=== PATIENT | female | born 1975 | race African-American/Black ===

== ENCOUNTER 2018-11-10 15:44 | Inpatient (IN) | payer OTHER ==
[~2018-11-10] VITALS: Ht 152.4 cm; Wt 34.0 kg
[2018-11-10 15:46] VITALS: BP 136/76
--- NOTE | 2018-11-10 15:53 | NUR ---
PT WHEELED OUT O LOBBY AT THIS TIME, VSS.
--- NOTE | 2018-11-10 16:34 | NUR ---
WHEELCHAIRED INTO ROOM 7
--- NOTE | 2018-11-10 16:45 | NUR ---
BIB MOM WITH C/O LOSS OF APPETITE AND ABD DISTENTION X1 WEEK. PER MOM, PT HAS BEEN HAVING VERY FREQUENT AND SMALL RUNNY BOWEL MOVEMENTS OVER THE LAST WEEK, AND SHE HAS BEEN REFUSING TO EAT. PT BOWEL SOUNDS PRESENT X4, ABDOMEN IS HARD/ROUND/DISTENDED/FIRM. 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 PT MOM DENIES N/V/FEVER.
[2018-11-10 16:57] LABS: BASOPHILS % (AUTO) 0.2 % (0.0-2.0); EOSINOPHILS % (AUTO) 0.5 % (0.0-4.0); HEMATOCRIT 37.5 % (36-48); HEMOGLOBIN 12.5 g/dL (12.0-16.0); LYMPHOCYTES # (AUTO) 0.5 K/uL (2.5-16.5); LYMPHOCYTES % (AUTO) 15.8 % (20.5-51.1); MEAN CORPUSCULAR HEMOGLOBIN 32 pg (27-31); MEAN CORPUSCULAR HGB CONC 33 g/dL (33-37); MEAN CORPUSCULAR VOLUME 95.2 fL (80-94); MONOCYTES # (AUTO) 0.4 K/uL (0.8-1.0); MONOCYTES % (AUTO) 11.7 % (1.7-9.3); NEUTROPHILS # (AUTO) 2.2 K/uL (1.8-7.7); NEUTROPHILS % (AUTO) 71.8 % (42.2-75.2); PLATELET COUNT (AUTO) 241 K/uL (140-450); RED BLOOD CELL COUNT(AUTO) 3.94 MIL/uL (4.20-5.40); RED CELL DISTRIBUTION WIDTH 12.8 % (11.6-13.7); WHITE BLOOD COUNT (AUTO) 3.1 K/uL (4.8-10.8)
[2018-11-10 17:07] LABS: ANION GAP 10.4 (8-16); CARBON DIOXIDE 33.3 mmol/L (21-32); CREATININE 0.5 mg/dL (0.6-1.3); POTASSIUM 3.7 mmol/L (3.5-5.1)
[2018-11-10 17:12] LABS: ALBUMIN 4.3 g/dL (3.4-5.0); TOTAL BILIRUBIN 0.9 mg/dL (0.0-1.0)
--- NOTE | 2018-11-10 17:45 | NUR ---
# 14 FR Urinary catheter inserted utilizing sterile technique. Immediate return of YELLOW 100ml urine noted. Urine sample collected and sent to lab. Pt tolerated procedure WELL.
--- NOTE | 2018-11-10 18:08 | NUR ---
PT LEFT TO CT
--- NOTE | 2018-11-10 18:18 | NUR ---
PT RETURNED FROM CT VIA [facility].
--- NOTE | 2018-11-10 18:18 | NUR ---
PT RETURNED FROM CT
--- NOTE | 2018-11-10 18:56 | NUR ---
PT RESTING IN BED, MOM AT BEDSIDE
--- NOTE | 2018-11-10 19:11 | NUR ---
RECEIVED REPORT FROM KP MARTINEZ. PT LAYING IN BED. MOTHER AT BEDSIDE.
--- NOTE | 2018-11-10 20:06 | NUR ---
PER MD ORDER PT NPO
[2018-11-10] MEDS ORDERED: NACL 0.9% 1,000 ML IV ONE (20:30)
--- NOTE | 2018-11-10 20:46 | NUR ---
ESTABLISHED IV LEFT FOREARM 20G. TOLERATED WELL.
[2018-11-10] MEDS ORDERED: MORPHINE SULFATE 4 MG/ML SYR IVP PRN (20:50)
[2018-11-10] MEDS ORDERED: ONDANSETRON 4 MG/2 ML VIAL IVP PRN (20:50)
[2018-11-10] MEDS ORDERED: ALBUTEROL 0.083% 2.5 MG/3 ML NEBU INH PRN (20:50)
[2018-11-10] MEDS ORDERED: LORazepam 2 MG/ML VIAL IVP PRN (20:50)
[2018-11-10 20:52] VITALS: BP 129/88
--- NOTE | 2018-11-10 20:52 | NUR ---
RECEIVED BEDSIDE REPORT FROM INTERNET SALES ASSOCIATE, PATIENT AWAKE, MOTHER AT BEDSIDE. HX OF CEREBRAL PALSY. ABLE TO MOUTH SOME WORDS IN A SOFT VOICE, ABLE TO FOLLOW SOME COMMANDS. PERRLA SIZE 3 BILATERALLY, V/S TAKEN ALL STABLE. PATIENT FLACC-6 WILL MEDICATE WITH MORPHINE. LUNG SOUNDS CLEAR, S1 AND S2 HEARD, CAP REFILL LESS THAN 2 SECONDS, PULSES PALPATED ILL ALL EXTREMITIES. ABDOMEN IS DISTENDED, HYPOACTIVE BOWEL SOUNDS IN ALL QUADRANTS. BLE CONTRACTURES NOTED. SKIN IS WARM AND DRY NO WOUNDS NOTED. IV IN LEFT FA 20 G INFUSING 1 L NS BOLUS. WC AT BEDSIDE. BED ALARM ON. MRSA SCREEN COLLECTED AND SENT TO LAB. MOTHER WHICH IS PATIENT CONSERVATOR AT BEDSIDE AND ABLE TO ANSWER ADMISSION QUESTIONS.
--- NOTE | 2018-11-10 21:25 | NUR ---
Patient will be admitted to care of [facility]. Admited to [facility]. Will go to room 108B. Belongings list completed. Report to DAVID MARTINEZ.
--- NOTE | 2018-11-10 21:25 | NUR ---
WHEELCHAIR KEPT WITH PT. BELONGINGS LIST COMPLETED. MOTHER AT BEDSIDE [facility] FLOOR [facility] 108B. INFORMED SUMMER RN OF NS BOLUS STILL INFUSING AT THIS TIME.
--- NOTE | 2018-11-10 22:30 | NUR ---
GAVE MORPHINE FOR PAIN FLACC-6
[2018-11-10] MEDS: MORPHINE SULFATE 2 MG/ML SYR IVP PRN (22:31)
[2018-11-10] MEDS: METOCLOPRAMIDE 10 MG/2 ML INJ VIAL IVP SCH (22:31)
[2018-11-10] MEDS: LACTATED RINGERS 1,000 ML IV SCH (22:32)
--- NOTE | 2018-11-11 00:10 | NUR ---
PATIENT ASLEEP IN BED ON RA, NO SIGNS OF PAIN AT THIS TIME
--- NOTE | 2018-11-11 01:45 | NUR ---
PATIENT ASLEEP IN BED, NO SIGNS OF DISTRESS OR PAIN AT THIS TIME
--- NOTE | 2018-11-11 04:10 | NUR ---
REPOSITIONED PATIENT FOR COMFORT, NO BM NOTED. PATIENT URINATED X 1. CECILIA CARE PROVIDED. WILL CONTINUE TO MONITOR.
[2018-11-11] MEDS: MORPHINE SULFATE 2 MG/ML SYR IVP PRN (05:14)
[2018-11-11] MEDS: METOCLOPRAMIDE 10 MG/2 ML INJ VIAL IVP SCH ×3 (05:14→21:28)
--- NOTE | 2018-11-11 06:21 | NUR ---
PATIENT SLEEPING IN BED, NO SIGNS OF PAIN, WILL CONTINUE TO MONITOR
--- NOTE | 2018-11-11 07:10 | NUR ---
RECEIVED REPORT FROM SYSTEM ENGINEER NURSE. PT IS ON ROOM AIR, LAYING IN BED. PT IS FULL CODE, NKA. CONTRACTURES TO LOWER EXTREMITIES PRESENT. IV TO LEFT FA. PATIENT IS A&O X2/3. PATIENTS MOTHER IS THE CONSERVATOR. WILL CONTINUE CARE FOR THE DAY
[2018-11-11 07:20] LABS: BASOPHILS % (AUTO) 0.2 % (0.0-2.0); EOSINOPHILS % (AUTO) 0.4 % (0.0-4.0); HEMATOCRIT 34.5 % (36-48); HEMOGLOBIN 11.7 g/dL (12.0-16.0); LYMPHOCYTES # (AUTO) 0.4 K/uL (2.5-16.5); LYMPHOCYTES % (AUTO) 7.6 % (20.5-51.1); MEAN CORPUSCULAR HEMOGLOBIN 32 pg (27-31); MEAN CORPUSCULAR HGB CONC 34 g/dL (33-37); MEAN CORPUSCULAR VOLUME 95.2 fL (80-94); MONOCYTES # (AUTO) 0.4 K/uL (0.8-1.0); NEUTROPHILS # (AUTO) 4.1 K/uL (1.8-7.7); NEUTROPHILS % (AUTO) 83.8 % (42.2-75.2); PLATELET COUNT (AUTO) 206 K/uL (140-450); RED BLOOD CELL COUNT(AUTO) 3.62 MIL/uL (4.20-5.40); RED CELL DISTRIBUTION WIDTH 12.8 % (11.6-13.7); WHITE BLOOD COUNT (AUTO) 4.9 K/uL (4.8-10.8)
[2018-11-11 07:33] LABS: ALBUMIN 3.3 g/dL (3.4-5.0); CARBON DIOXIDE 24.7 mmol/L (21-32); CREATININE 0.3 mg/dL (0.6-1.3); MAGNESIUM 1.8 mg/dL (1.8-2.4); POTASSIUM 3.7 mmol/L (3.5-5.1)
[2018-11-11 08:00] VITALS: BP 101/63
--- NOTE | 2018-11-11 08:30 | NUR ---
PATIENT HAS BEEN SCREENED AND CATEGORIZED HIGH NUTRITION RISK. PATIENT WILL BE SEEN WITHIN 1-2 DAYS OF ADMISSION. 11/11/18-11/12/[address]
[2018-11-11] MEDS: LACTATED RINGERS 1,000 ML IV SCH ×2 (08:55→21:32)
[2018-11-11] MEDS ORDERED: ENOXAPARIN 30 MG/0.3 ML SYR SUBQ SCH (09:00)
--- NOTE | 2018-11-11 09:45 | NUR ---
ADMINISTERED MORNING MEDICATION TO PATIENT. PATIENT TOLERATED WELL.
--- NOTE | 2018-11-11 11:10 | NUR ---
CONTACTED PATIENT'S PCP DR. Karen WHALEY AT [phone] REGARDING POST DISCHARGE APPOINTMENT. SCHEDULED ON 12/17/2018 0900. ADDRESS TO THE CLINIC IS [address] [place] [id number]. COPY OF APPOINTMENT PROVIDED TO THE PATIENT.
--- NOTE | 2018-11-11 12:00 | NUR ---
PATIENT IS IN BED SLEEPING. VISIBLE CHEST RISE AND FALL. NO SIGNS OF RESPIRATORY DISTRESS. WILL CONTINUE TO MONITOR
--- NOTE | 2018-11-11 14:21 | NUR ---
WITH ASSISTANCE, PATIENT USED BED CORBIN AND HAD A BM X1 AND VOID X1. MOTHER IS AT BEDSIDE AND WAS INFORMED ON PLAN OF CARE.
[2018-11-11 16:00] VITALS: BP 114/83
[2018-11-11] MEDS ORDERED: KCL 20 MEQ/WATER INJ PREMIX 100 ML IV SCH (18:15)
--- NOTE | 2018-11-11 19:20 | NUR ---
RECD. RESTING IN BED, AWAKE, A/OX2. RESPIRATION EVEN AND UNLABORED. K RIDER INFUSING AT 25 ML/HR, LEFT AC G20. ABDOMEN DISTENDED, FIRM. INCONTINENT. SAFETY MEASURES ENFORCED. BED ON ALARM. PLAN OF CARE DISCUSSED WITH PATIENT. NEEDS REINFORCEMENT. DENIES PAIN 0/10.
--- NOTE | 2018-11-11 22:00 | NUR ---
WATCHING CARTOONS. MOTHER AT THE BEDSIDE.
[2018-11-12] VITALS: BP 106/70
--- NOTE | 2018-11-12 00:20 | NUR ---
NGT INSERTED BY MICHELLE SUMNER AT THE RIGHT NARES.
--- NOTE | 2018-11-12 00:40 | NUR ---
HAD SOME LOOSE BM, DARK GREENISH COLOR. CLEANSED AND REPOSITIONED IN BED WITH PILLOWS FOR COMFORT.
--- NOTE | 2018-11-12 01:30 | NUR ---
CHEST X-RAY AND KUB DONE BY TECH.
--- NOTE | 2018-11-12 03:00 | NUR ---
NGT IN GOOD POSITION PER CHEST X-RAY. MODERATE AMOUNT OF GAS AND STOOL IN THE COLON.
--- NOTE | 2018-11-12 03:30 | NUR ---
NGT CONNECTED TO LOW INTERMITTENT SUCTION. SMALL AMOUNT OF CLEAR LIQUID NOTED DRAIN FROM NGT.
[2018-11-12] MEDS: METOCLOPRAMIDE 10 MG/2 ML INJ VIAL IVP SCH ×3 (06:02→22:34)
--- NOTE | 2018-11-12 06:30 | NUR ---
TAKEN TO RADIOLOGY VIA BED BY YOLANDA FOR CT OF ABDOMEN WITH CONTRAST.
--- NOTE | 2018-11-12 07:00 | NUR ---
RESTING IN BED FROM RADIOLOGY. NO DISTRESS NOTED.
--- NOTE | 2018-11-12 07:25 | NUR ---
ENDORSED TO AM SHIFT NURSE FOR CONTINUITY OF CARE.
--- NOTE | 2018-11-12 07:26 | NUR ---
RECEIVED BEDSIDE REPORT FROM ARTIFICIAL GLASS EYE MAKER NURSE. PATIENT IS AWAKE, ALERT AND ORIENTEDX2. NO SIGNS OF DISTRESS ON RA. SKIN IS INTACT, LOW CANDIDO. FALL RISK PROTOCOL IN PLACE, PATIENT IS BEDBOUND/WHEELCHAIR BOUND. INCONTINENT. IC ON L AC 20G INFUSING LR AT 80. CLEAN, DRY AND INTACT. NGT ON R NARES CONNECTED TO SUCTION. BED IN LOW POSITION. CALL LIGHT WITHIN REACH. WILL CONTINUE TO MONITOR THE PATIENT
[2018-11-12 08:00] VITALS: BP 105/68
[2018-11-12 08:52] LABS: BASOPHILS % (AUTO) 0.2 % (0.0-2.0); EOSINOPHILS % (AUTO) 0.5 % (0.0-4.0); HEMATOCRIT 34.9 % (36-48); HEMOGLOBIN 11.9 g/dL (12.0-16.0); LYMPHOCYTES # (AUTO) 0.6 K/uL (2.5-16.5); LYMPHOCYTES % (AUTO) 14.8 % (20.5-51.1); MEAN CORPUSCULAR HEMOGLOBIN 32 pg (27-31); MEAN CORPUSCULAR HGB CONC 34 g/dL (33-37); MEAN CORPUSCULAR VOLUME 94.6 fL (80-94); MONOCYTES # (AUTO) 0.4 K/uL (0.8-1.0); MONOCYTES % (AUTO) 11.1 % (1.7-9.3); NEUTROPHILS # (AUTO) 2.8 K/uL (1.8-7.7); NEUTROPHILS % (AUTO) 73.4 % (42.2-75.2); PLATELET COUNT (AUTO) 215 K/uL (140-450); RED BLOOD CELL COUNT(AUTO) 3.69 MIL/uL (4.20-5.40); RED CELL DISTRIBUTION WIDTH 12.5 % (11.6-13.7); WHITE BLOOD COUNT (AUTO) 3.8 K/uL (4.8-10.8)
--- NOTE | 2018-11-12 09:00 | NUR ---
CALLED PATIENTS MOTHER, PHONE WENT TO VOIC[employer], LEFT A MESSAGE AND TOLD HER THEY WERE GOING TO DO IMAGING. I WANTED TO SEE IF PATIENT FAMILY WANTED TO BE THERE AT THAT TIME.
[2018-11-12 09:28] LABS: ANION GAP 14.6 (8-16); CARBON DIOXIDE 23.2 mmol/L (21-32); POTASSIUM 3.8 mmol/L (3.5-5.1)
[2018-11-12 10:14] LABS: CREATININE 0.4 mg/dL (0.6-1.3)
[2018-11-12 10:17] LABS: MAGNESIUM 1.8 mg/dL (1.8-2.4); PHOSPHORUS 2.7 mg/dL (2.5-4.9)
--- NOTE | 2018-11-12 10:35 | NUR ---
CALLED PATIENTS MOTHER AGAIN, PHONE WENT STRAIGHT TO [employer]ICEM[employer] AGAIN, LEFT A MESSAGE
--- NOTE | 2018-11-12 10:40 | NUR ---
PATIENTS FAMILY HAS NOT CALLED, RADIOLOGIST SAID HE WILL JUST DO THE IMAGING
--- NOTE | 2018-11-12 10:41 | NUR ---
XRAY PATIENT PICKED UP THE PATIENT. PATIENT LEFT IN STABLE CONDITION
[2018-11-12] MEDS: DEXT 5% /NACL 0.9% 1,000 ML IV SCH (12:34)
--- NOTE | 2018-11-12 12:34 | NUR ---
PATENT BACK FROM XRAY. SHE IS IN STABLE CONDITION. DR FIGUEROA MADE AWARE OF BS OF 59. HE SAID TO CHANGE FLUIDS TO D5NS AT 80. FLUIDS CHANGED, HE SAID PATIENT DOES NOT NEED BLOOD SUGAR CHECKS JUST D5NS. FAMILY AT BEDSIDE
[2018-11-12] MEDS ORDERED: MAGNESIUM CITRATE 300 ML BTL NG SCH (13:36)
[2018-11-12 13:39] LABS: PROTHROMBIN TIME 12.2 secs (10.8-13.4)
[2018-11-12] MEDS ORDERED: MAGNESIUM CITRATE 300 ML BTL PO ONE (13:40)
--- NOTE | 2018-11-12 14:28 | NUR ---
PER DR FRANCOIS REQUESTED ADMINISTER MG CITRATE THRU NG TUBE AND REMOVED NGT. PATIENT TOLERATED WELL. FAMILY AT BEDSIDE. WILL CONTINUE TO MONITOR
--- NOTE | 2018-11-12 15:44 | NUR ---
PATIENT LAYING IN BED. NO SIGNS OF DISTRESS. WILL CONTINUE TO MONITOR
[2018-11-12 16:00] VITALS: BP 111/76
--- NOTE | 2018-11-12 16:15 | NUR ---
11/12/18 RD INITIAL ASSESSMENT COMPLETED PLEASE REFER TO NUTRITION ASSESSMENT UNDER CARE ACTIVITY FOR ESTIMATED NUTRITIONAL NEEDS. 1. CONTINUE FULL LIQUID DIET TOLERATED 2. RECOMMEND ENSURE TID 3. RD PROVIDED NUTRITION EDUCATION FOR CONSTIPATION AND HIGH CALORIE AND PROTEIN THERAPY 4. RD TO FOLLOW-UP 3-5 DAYS, MODERATE RISK KIM ALEJANDRE, RD
--- NOTE | 2018-11-12 16:51 | NUR ---
PATIENT LAYING IN BED WITH NO DISTRESS. FAMILY AT BEDSIDE
--- NOTE | 2018-11-12 17:49 | NUR ---
PATIENT IS DRAWING. FAMILY AT BEDSIDE
--- NOTE | 2018-11-12 19:19 | NUR ---
GAVE BEDSIDE REPORT TO GRINDER MILL OPERATOR NURSE. PATIENT ENDORSED IN STABLE CONDITION
--- NOTE | 2018-11-12 19:20 | NUR ---
RECD. RESTING IN BED, AWAKE, A/OX2. RESPIRATION EVEN AND UNLABORED. ABDOMEN DECREASED FIRMNESS, STILL SOME DISTENTION NOTED. ALREADY HAVING LOOSE BM. IV OF D5NS AT 80 ML/HR INFUSING LEFT FOREARM G20. BILATERAL LOWER EXTREMITIES CONTRACTED. PLAN OF CARE FOR THE SHIFT DISCUSSED WITH MOTHER, VERBALIZED UNDERSTANDING. DENIES PAIN 0/10.
--- NOTE | 2018-11-12 19:30 | NUR ---
Patient's Plan of Care was discussed and reviewed with SKATING CARHOP: JERMAINE
--- NOTE | 2018-11-12 20:00 | NUR ---
HAD LOOSE BM BLACK BROWNISH COLOR, LARGE AMOUNT. CLEANSED AND REPOSITIONED IN BED WITH PILLOWS.
--- NOTE | 2018-11-12 20:30 | NUR ---
HAD LOOSE BM MODERATE AMOUNT, CLEANSED AND REPOSITIONED IN BED WITH PILLOWS.
--- NOTE | 2018-11-12 22:30 | NUR ---
HAD 2 LOOSE BM, CLEANSED AND REPOSITIONED WITH PILLOWS.
[2018-11-13] VITALS: BP 119/84
--- NOTE | 2018-11-13 | NUR ---
HAD ANOTHER LOOSE BM, CLEANSED AND REPOSITIONED IN BED WITH PILLOWS.
[2018-11-13] MEDS: DEXT 5% /NACL 0.9% 1,000 ML IV SCH ×2 (00:55→01:54)
[2018-11-13] MEDS: MORPHINE SULFATE 2 MG/ML SYR IVP PRN (01:08)
--- NOTE | 2018-11-13 01:30 | NUR ---
SLEEPING COMFORTABLY IN BED.
--- NOTE | 2018-11-13 03:20 | NUR ---
VOMITED LARGE AMOUNT OF YELLOWISH FLUID. CLEANSED AND REPOSITIONED IN BED WITH PILLOWS. STILL WITH ABDOMINAL DISTENTION.
--- NOTE | 2018-11-13 03:25 | NUR ---
SMALL AMOUNT OF ICE CHIPS GIVEN.
[2018-11-13] MEDS: METOCLOPRAMIDE 10 MG/2 ML INJ VIAL IVP SCH (05:39)
--- NOTE | 2018-11-13 05:39 | NUR ---
VOMITED MODERATE AMOUNT OF YELLOWISH FLUIDS, MEDICATED WITH REGLAN BY MICHELLE SADLER. CLEANSED PATIENT AND REPOSITION IN BED WITH PILLOWS.
--- NOTE | 2018-11-13 06:27 | NUR ---
INFORMED DR. LY DYLAN PATIENT HAS BEEN VOMITING A LOT AND THE ABDOMEN IS STILL DISTENDED. ORDER TO INSERT NGT TO LOW INTERMITTENT SUCTION AND KEEP PT. NPO.
--- NOTE | 2018-11-13 07:20 | NUR ---
ENDORSED TO AM SHIFT NURSE FOR CONTINUITY OF CARE.
--- NOTE | 2018-11-13 07:21 | NUR ---
RECEIVED REPORT FROM GOLF INSTRUCTOR NURSE. PT WAS LYING IN BED WITH NO SIGNS OF DISTRESS. PT WAS RESPONSIVE TO VERBAL STIMULI. GOLF INSTRUCTOR NURSE REPORT TWO EPISODES OF EMESIS. NG TUBE INSERTED CHECKED PLACEMENT TO LOW INTERMITTENT SUCTION. PT TOLERATED WELL. Addendum: 11/13/18 at 1118 by Juan Carlos Ortega RN CLARIFICATION: NO NG TUBE PRESENT AT THIS TIME.
[2018-11-13 08:00] VITALS: BP 109/71
[2018-11-13 09:11] LABS: BASOPHILS % (AUTO) 0.2 % (0.0-2.0); HEMATOCRIT 38.1 % (36-48); HEMOGLOBIN 12.8 g/dL (12.0-16.0); LYMPHOCYTES # (AUTO) 0.2 K/uL (2.5-16.5); LYMPHOCYTES % (AUTO) 2.9 % (20.5-51.1); MEAN CORPUSCULAR HEMOGLOBIN 32 pg (27-31); MEAN CORPUSCULAR HGB CONC 34 g/dL (33-37); MEAN CORPUSCULAR VOLUME 94.3 fL (80-94); MONOCYTES # (AUTO) 0.5 K/uL (0.8-1.0); MONOCYTES % (AUTO) 8.5 % (1.7-9.3); NEUTROPHILS # (AUTO) 4.8 K/uL (1.8-7.7); NEUTROPHILS % (AUTO) 88.4 % (42.2-75.2); PLATELET COUNT (AUTO) 248 K/uL (140-450); RED BLOOD CELL COUNT(AUTO) 4.04 MIL/uL (4.20-5.40); RED CELL DISTRIBUTION WIDTH 12.8 % (11.6-13.7); WHITE BLOOD COUNT (AUTO) 5.4 K/uL (4.8-10.8)
--- NOTE | 2018-11-13 09:30 | NUR ---
NG TUBE 14 F INSERTED TO RIGHT NARES WITH IMMEDIATE YELLOW BROWN GASTRIC CONTENT ASPIRATED TO LOW INTERMITTED SUCTION. PT IN NO DISTRESS.
[2018-11-13 09:41] LABS: ANION GAP 12.2 (8-16); CARBON DIOXIDE 32.6 mmol/L (21-32); CREATININE 0.6 mg/dL (0.6-1.3)
[2018-11-13 09:45] LABS: MAGNESIUM 2.4 mg/dL (1.8-2.4); PHOSPHORUS 3.3 mg/dL (2.5-4.9)
[2018-11-13 09:46] LABS: POTASSIUM 2.8 mmol/L (3.5-5.1)
--- NOTE | 2018-11-13 09:50 | NUR ---
Per radio communication coordinator, small bowel follow through can't be done d/t recent barium swallow. Dr Taylor notified & states ok to hold small bowel follow-through.
[2018-11-13] MEDS ORDERED: KCL 20 MEQ/WATER INJ PREMIX 100 ML IV SCH (10:00)
[2018-11-13] MEDS ORDERED: POTASSIUM CHLORIDE 20% 40 MEQ/15 ML UDC PO SCH (10:00)
[2018-11-13] MEDS: POTASSIUM CHL 40 MEQ/ D5-1/2NS 1,000 ML IV SCH (10:21)
--- NOTE | 2018-11-13 14:03 | NUR ---
PT IS LYING IN BED WITH NO SIGNS OF DISTRESS. REPOSITIONED PT TO RIGHT SIDE. IV SITE INTACT AND PATENT. PT TOLERATING IV MEDS.
--- NOTE | 2018-11-13 14:41 | NUR ---
NGT suction paused at this time. KCl elixir administered via NGT. Pt awake, no signs of distress, respirations even & nonlabored. Left forearm IV intact with ongoing D5NS @ 80ml/hr. Call light within reach.
--- NOTE | 2018-11-13 15:30 | NUR ---
Low intermittent suction resumed to NGT at this time. Pt in no distress, able to follow simple commands, able to nod/shake head in reply to questions. Call light within reach.
[2018-11-13 16:00] VITALS: BP 118/81
--- NOTE | 2018-11-13 17:30 | NUR ---
PT IN BED LYING DOWN AND RESTING. PT REPOSITIONED. NO SIGNS OF DISTRESS OR GRIMACING NOTED. CALL LIGHT WITHIN REACH.
--- NOTE | 2018-11-13 19:30 | NUR ---
Report given to pm nurse. Pt resting in bed, no signs of distress. NGT intact to right nares with low intermittent suction. HOB elevated @ 30. Call light within reach.
[2018-11-14 03:55] VITALS: BP 116/85
[2018-11-14 06:59] LABS: BASOPHILS % (AUTO) 0.2 % (0.0-2.0); EOSINOPHILS % (AUTO) 0.1 % (0.0-4.0); HEMATOCRIT 34.4 % (36-48); HEMOGLOBIN 11.5 g/dL (12.0-16.0); LYMPHOCYTES # (AUTO) 0.3 K/uL (2.5-16.5); LYMPHOCYTES % (AUTO) 4.1 % (20.5-51.1); MEAN CORPUSCULAR HEMOGLOBIN 32 pg (27-31); MEAN CORPUSCULAR HGB CONC 34 g/dL (33-37); MONOCYTES # (AUTO) 0.6 K/uL (0.8-1.0); MONOCYTES % (AUTO) 8.6 % (1.7-9.3); NEUTROPHILS # (AUTO) 6.4 K/uL (1.8-7.7); PLATELET COUNT (AUTO) 233 K/uL (140-450); RED BLOOD CELL COUNT(AUTO) 3.58 MIL/uL (4.20-5.40); RED CELL DISTRIBUTION WIDTH 12.9 % (11.6-13.7); WHITE BLOOD COUNT (AUTO) 7.3 K/uL (4.8-10.8)
[2018-11-14 07:03] LABS: ANION GAP 13.7 (8-16); CARBON DIOXIDE 29.2 mmol/L (21-32); CREATININE 0.6 mg/dL (0.6-1.3); POTASSIUM 3.9 mmol/L (3.5-5.1)
[2018-11-14 07:16] LABS: MAGNESIUM 2.3 mg/dL (1.8-2.4); PHOSPHORUS 3.2 mg/dL (2.5-4.9)
--- NOTE | 2018-11-14 07:53 | NUR ---
Received report from radiological metallurgist nurse. Pt is in bed and sleeping. No complains of pain or distress noted. Call light within reach.
[2018-11-14 08:00] VITALS: BP 111/73
--- NOTE | 2018-11-14 09:15 | NUR ---
NGT advanced 5cm per KUB radiologist recommendation. Cont low intermittent suction. No output noted. Pt in no distress, abd mildly distended, no episode of vomiting. Left forearm IV intact with ongoing D5 1/2 NS + 40mEq KCl @ 40ml/hr. Call light within reach.
[2018-11-14] MEDS: POTASSIUM CHL 40 MEQ/ D5-1/2NS 1,000 ML IV SCH (09:50)
[2018-11-14 16:00] VITALS: BP 120/88
[2018-11-14] MEDS: POTASSIUM CHL 20 MEQ/D5-1/2NS 1,000 ML IV SCH (18:20)
[2018-11-14] MEDS ORDERED: MORPHINE SULFATE 2 MG/ML SYR IVP PRN (18:20)
--- NOTE | 2018-11-14 18:20 | NUR ---
NGT clamped & suction removed, per Dr Taylor, flushed with 30ml water. Pt in no distress, no c/o discomfort. Mother at bedside. Call light within reach.
--- NOTE | 2018-11-14 19:30 | NUR ---
Report given to pm nurse May. Pt resting in bed, no signs of distress.
--- NOTE | 2018-11-14 20:00 | NUR ---
REPORT RECIEVED FROM DAY NURSE. PT. STABLE.V/S TAKEN AND ARE WNL. CALL LIGHT WITHIN REACH, BED IN LOW POSITION, 2 SIDERAILS UP.
[2018-11-14] MEDS ORDERED: SENNA 8.6 MG TAB PO SCH (21:00)
--- NOTE | 2018-11-14 21:00 | NUR ---
MEDICATION GIVEN VIA NGT. NO COMPLICATIONS NOTED. JEVETY1.2 STARTED PER MD ORDERS. FEEDING 20ML/HR WITH WATER FLUSH [id number]. PT. IS TOLERATING FEEDING. CALL LIGHT WITHIN REACH. SAFETY MEASURES IN PLACE WILL MONITOR FEEDING.
[2018-11-14] MEDS: METOCLOPRAMIDE 10 MG/2 ML INJ VIAL IVP SCH (23:32)
[2018-11-15] VITALS: BP 116/82
--- NOTE | 2018-11-15 00:10 | NUR ---
PT.RESTING WITH NO DISTRESS. V/S WNL. NO C/O PAIN. BED IN LOW POSITION,2 SIDERAILS, CALL LIGHT WITHIN REACH.
--- NOTE | 2018-11-15 02:00 | NUR ---
PT. RESTING WITH NO DISTRESS. CALL LIGHT WITHIN REACH. SAFETY MEASURES IN PLACE.
--- NOTE | 2018-11-15 03:00 | NUR ---
NGT RESIDUAL 10ML. NO DISTRESS NOTED . CALL LIGHT WITHIN REACH.
--- NOTE | 2018-11-15 04:00 | NUR ---
pt. resting with no distress. call light within reach.
[2018-11-15] MEDS: METOCLOPRAMIDE 10 MG/2 ML INJ VIAL IVP SCH ×4 (05:44→23:10)
--- NOTE | 2018-11-15 07:18 | NUR ---
ENDORSED CARE TO DAY NURSE. PT. STABLE NO DISTRESS NOTED.
--- NOTE | 2018-11-15 07:20 | NUR ---
RECEIVED BEDSIDE REPORT FROM MANAGER DOMESTIC NURSE MIKE FOR CONTINUITY OF CARE. PATIENT IS AWAKE AND RESTING ON BED AT THIS TIME. PATIENT IS AOX1. PATIENT IS ABLE TO FOLLOW SIMPLE COMMANDS AND MAKE NEEDS KNOWN. RESPIRATION EVEN AND UNLABORED ON RA. RESPIRATION EVEN AND UNLABORED ON RA. NO SIGNS OF DISTRESS NOTED. IV ON LFA 20G, CLEAN AND INTACT, INFUSING PER MD ORDER. NGT IN PLACE, AND RUNNING JEVITY 1.2 AT 20 ML/HR. SKIN CLEAN AND INTACT. PATIENT IS BEDREST AND INCONTINENT. SAFETY MEASURES IN PLACE. BED IN LOW POSITION AND CALL LIGHT WITHIN REACH. FALL RISK PROTOCOL IN PLACE AND BED ALARM ACTIVATED. INSTRUCTED PATIENT TO USE THE CALL LIGHT AND PATIENT WAS AWARE.
[2018-11-15 08:00] VITALS: BP 127/96
[2018-11-15] MEDS: SENNA 8.6 MG TAB PO SCH ×2 (09:37→21:17)
[2018-11-15] MEDS: POTASSIUM CHL 20 MEQ/D5-1/2NS 1,000 ML IV SCH ×2 (09:37→23:06)
--- NOTE | 2018-11-15 09:37 | NUR ---
CHECKED NGT RESIDUAL AND RECEIVED 7 ML, FLUSHED BEFORE AND AFTER MED ADMINISTERED, PATIENT TOLERATED WELL, MED EDUCATION PROVIDED TO PATIENT AND REINFORCEMENT NEEDED. PATIENT AWAKE AND RESTING ON BED AT THIS TIME. NO SIGNS OF DISTRESS NOTED. SAFETY MEASURES IN PLACE. BED IN LOW POSITION AND CALL LIGHT WITHIN REACH.
[2018-11-15 10:27] LABS: BASOPHILS % (AUTO) 0.1 % (0.0-2.0); EOSINOPHILS % (AUTO) 0.1 % (0.0-4.0); HEMATOCRIT 35.9 % (36-48); HEMOGLOBIN 11.9 g/dL (12.0-16.0); LYMPHOCYTES # (AUTO) 0.6 K/uL (2.5-16.5); LYMPHOCYTES % (AUTO) 8.3 % (20.5-51.1); MEAN CORPUSCULAR HEMOGLOBIN 32 pg (27-31); MEAN CORPUSCULAR HGB CONC 33 g/dL (33-37); MEAN CORPUSCULAR VOLUME 96.7 fL (80-94); MONOCYTES # (AUTO) 0.5 K/uL (0.8-1.0); MONOCYTES % (AUTO) 6.8 % (1.7-9.3); NEUTROPHILS # (AUTO) 5.8 K/uL (1.8-7.7); NEUTROPHILS % (AUTO) 84.7 % (42.2-75.2); PLATELET COUNT (AUTO) 229 K/uL (140-450); RED BLOOD CELL COUNT(AUTO) 3.71 MIL/uL (4.20-5.40); WHITE BLOOD COUNT (AUTO) 6.8 K/uL (4.8-10.8)
--- NOTE | 2018-11-15 10:33 | NUR ---
DR SAUCEDO IS TALKING AND ASSESSING PATIENT AT BEDSIDE. NO SIGNS OF DISTRESS NOTED. SAFETY MEASURES IN PLACE. BED IN LOW POSITION AND CALL LIGHT WITHIN REACH. FALL RISK PROTOCOL IN PLACE AND BED ALARM ACTIVATED.
[2018-11-15 10:45] LABS: MAGNESIUM 2.1 mg/dL (1.8-2.4); PHOSPHORUS 2.2 mg/dL (2.5-4.9)
[2018-11-15] MEDS ORDERED: MAGNESIUM HYDROXIDE 2400 MG/30 ML UDC NG PRN (10:50)
[2018-11-15 10:56] LABS: ANION GAP 13.5 (8-16); CARBON DIOXIDE 26.2 mmol/L (21-32); CREATININE 0.5 mg/dL (0.6-1.3); POTASSIUM 3.7 mmol/L (3.5-5.1)
--- NOTE | 2018-11-15 11:11 | NUR ---
PATIENT IS AWAKE AND MOTHER DANG BY BEDSIDE. NO SIGNS OF DISTRESS NOTED. SAFETY MEASURES IN PLACE. BED IN LOW POSITION AND CALL LIGHT WITHIN REACH. INSTRUCTED PATIENT AND MOTHER DANG TO USE THE CALL LIGHT FOR ANY ASSISTANCE.
--- NOTE | 2018-11-15 12:14 | NUR ---
ADMINISTERED MED PER MD ORDER, PATIENT TOLERATED WELL. MED EDUCATION TO PATIENT AND PATIENT'S MOTHER DANG. PATIENT AWAKE AND RESTING ON BED. DENIED PAIN, SOB AND DIZZINESS. NO SIGNS OF DISTRESS NOTED. SAFETY MEASURES IN PLACE. BED IN LOW POSITION AND CALL LIGHT WITHIN REACH. FALL RISK PROTOCOL IN PLACE AND BED ALARM ACTIVATED. INSTRUCTED PATIENT AND MOTHER DANG TO USE THE CALL LIGHT FOR ANY ASSISTANCE AND PATIENT WAS AWARE.
--- NOTE | 2018-11-15 13:21 | NUR ---
PATIENT AWAKE AND DRAWING ON THE ART BOOK. MOTHER DANG BY BEDSIDE. NO SIGNS OF DISTRESS NOTED. SAFETY MEASURES IN PLACE. BED IN LOW POSITION AND CALL LIGHT WITHIN REACH. INSTRUCTED PATIENT AND MOTHER DANG TO USE THE CALL LIGHT FOR ANY ASSISTANCE AND MOTHER DANG WAS AWARE.
--- NOTE | 2018-11-15 15:18 | NUR ---
PATIENT AWAKE AND RESTING ON BED. DENIED PAIN, SOB AND DIZZINESS. NO SIGNS OF DISTRESS NOTED. MOTHER DANG IS BY BEDSIDE. SAFETY MEASURES IN PLACE. BED IN LOW POSITION AND CALL LIGHT WITHIN REACH. FALL RISK PROTOCOL IN PLACE AND BED ALARM ACTIVATED. INSTRUCTED PATIENT AND MOTHER DANG TO USE THE CALL LIGHT FOR ANY ASSISTANCE AND ALL WAS AWARE.
[2018-11-15 16:00] VITALS: BP 118/81
--- NOTE | 2018-11-15 18:37 | NUR ---
ADMINISTERED MED PER MD ORDER, PATIENT IS AWAKE AND SITTING UP ON BED. MOTHER DANG BY BEDSIDE. NO SIGNS OF DISTRESS NOTED. SAFETY MEASURES IN PLACE. BED IN LOW POSITION AND CALL LIGHT WITHIN REACH. FALL RISK PROTOCOL IN PLACE AND BED ALARM ACTIVATED.
--- NOTE | 2018-11-15 19:24 | NUR ---
ENDORSED PATIENT AT BEDSIDE TO CD REACTOR OPERATOR NURSE FOR CONTINUITY OF CARE. PATIENT IS AWAKE AND RESTING ON BED AT THIS TIME. NO SIGNS OF DISTRESS NOTED. PATIENT IS IN STABLE CONDITION. SAFETY MEASURES IN PLACE. BED IN LOW POSITION AND CALL LIGHT WITHIN REACH.
--- NOTE | 2018-11-15 19:26 | NUR ---
RECEIVED BEDSIDE REPORT FROM DAY SHIFT NURSE. PATIENT IS AWAKE AND COOPERATIVE. RESPIRATION EVEN UNLABORED ON ROOM AIR. NO DISTRESS NOTED. SKIN IS WARM AND DRY. IV PATENT AND INTACT. NGT IN PLACE. PATIENT RECEIVING NGT FEEDING RUNNING AT 20CC/HR. DENIES PAIN. ALL SAFETY MEASURES IN PLACE. PLAN OF CARE WAS DISCUSSED. BED IS AT LOW POSITION. CALL LIGHT WITHIN REACH. WILL CONTINUE TO MONITOR.
--- NOTE | 2018-11-15 20:00 | NUR ---
INITIAL ASSESSMENT DONE. VITALS WERE TAKEN. CHECKED PATIENT N-GTUBE PLACEMENT. OBTAINED 5CC RESIDUAL. NO DISTRESS NOTED. WILL CONTINUE TO MONITOR
--- NOTE | 2018-11-15 21:00 | NUR ---
ALL SCHEDULED MEDS WERE GIVEN PER ORDER. WILL CONTINUE TO MONITOR.
--- NOTE | 2018-11-15 21:20 | NUR ---
DR. KATZ CAME BY AND INSTRUCT TO REMOVE NG TUBE AND PLACE PATIENT TO FULL LIQUID DIET.
--- NOTE | 2018-11-15 21:45 | NUR ---
NGTUBE REMOVED PATIENT TOLERATED IT WELL.
[2018-11-16] VITALS: BP 115/77
--- NOTE | 2018-11-16 | NUR ---
VITALS WERE TAKEN. PATIENT IN STABLE CONDITION. NO DISTRESS NOTED.WILL CONTINUE TO MONITOR.
--- NOTE | 2018-11-16 02:36 | NUR ---
CHECKED PATIENT. PATIENT SLEEPING RESPIRATION EVEN UNLABORED ON ROOM AIR. NO DISTRESS NOTED. WILL CONTINUE TO MONITOR.
--- NOTE | 2018-11-16 04:15 | NUR ---
CHECKED PATIENT. PATIENT SLEEPING RESPIRATION EVEN UNLABORED ON ROOM AIR. NO DISTRESS NOTED. WILL CONTINUE TO MONITOR.
[2018-11-16] MEDS: METOCLOPRAMIDE 10 MG/2 ML INJ VIAL IVP SCH ×3 (05:36→17:08)
--- NOTE | 2018-11-16 07:19 | NUR ---
ENDORSED PATIENT TO DAY SHIFT NURSE FOR CONTINUITY OF CARE. PATIENT IN STABLE CONDITION
[2018-11-16 08:00] VITALS: BP 106/72
--- NOTE | 2018-11-16 09:10 | NUR ---
DR SAUCEDO IN TO SEE THE PATIENT. WILL WAIT FOR HIS ORDERS.
[2018-11-16] MEDS: SENNA 8.6 MG TAB PO SCH ×2 (09:59→21:00)
--- NOTE | 2018-11-16 09:59 | NUR ---
ORDERED MEDICATION GIVEN. PATIENT TOLERATED IT WELL. NO COMPLAINTS AT THIS TIME. PATIENT DENIES PAIN. SAFETY PRECAUTIONS IN PLACE, CALL LIGHT WITHIN REACH, WILL CONTINUE TO MONITOR PATIENT.
--- NOTE | 2018-11-16 12:10 | NUR ---
ORDERED MEDICATION GIVEN. PATIENT TOLERATED IT WELL. NO COMPLAINTS AT THIS TIME. MOTHER AT BEDSIDE. WILL CONTINUE TO MONITOR PATIENT.
--- NOTE | 2018-11-16 12:41 | NUR ---
PATIENT'S MOTHER DANG AT BEDSIDE. UPDATED HER WITH PATIENT'S STATUS AND PLAN OF CARE. SHE VERBALIZED UNDERSTANDING. EDUCATION ABOUT ILEUS PRINTED AND GIVEN TO HER TO READ. PATIENT CURRENTLY SITTING IN BED, MOTHER AT BEDSIDE ASSISTING HER TO EAT LUNCH. WILL CONTINUE TO MONITOR PATIENT.
[2018-11-16] MEDS: POTASSIUM CHL 20 MEQ/D5-1/2NS 1,000 ML IV SCH ×2 (13:14→13:46)
--- NOTE | 2018-11-16 13:46 | NUR ---
PATIENT COLORING IN BED, MOTHER AT BEDSIDE. ORDERED MEDICATION GIVEN. PATIENT TOLERATED IT. NO COMPLAINTS AT THIS TIME. PATIENT DENIES PAIN. SAFETY PRECAUTIONS IN PLACE, CALL LIGHT WITHIN REACH, WILL CONTINUE TO MONITOR PATIENT.
[2018-11-16 15:09] LABS: HEMATOCRIT 33.8 % (36-48); HEMOGLOBIN 11.3 g/dL (12.0-16.0); LYMPHOCYTES # (AUTO) 0.4 K/uL (2.5-16.5); LYMPHOCYTES % (AUTO) 5.7 % (20.5-51.1); MEAN CORPUSCULAR HEMOGLOBIN 32 pg (27-31); MEAN CORPUSCULAR HGB CONC 34 g/dL (33-37); MEAN CORPUSCULAR VOLUME 95.4 fL (80-94); MONOCYTES # (AUTO) 0.2 K/uL (0.8-1.0); MONOCYTES % (AUTO) 3.2 % (1.7-9.3); NEUTROPHILS % (AUTO) 91.1 % (42.2-75.2); PLATELET COUNT (AUTO) 181 K/uL (140-450); RED BLOOD CELL COUNT(AUTO) 3.54 MIL/uL (4.20-5.40); RED CELL DISTRIBUTION WIDTH 12.8 % (11.6-13.7); WHITE BLOOD COUNT (AUTO) 7.7 K/uL (4.8-10.8)
[2018-11-16 15:23] LABS: ANION GAP 12.6 (8-16); CARBON DIOXIDE 26.5 mmol/L (21-32); CREATININE 0.5 mg/dL (0.6-1.3); POTASSIUM 3.1 mmol/L (3.5-5.1)
[2018-11-16 15:28] LABS: MAGNESIUM 1.2 mg/dL (1.8-2.4); PHOSPHORUS 1.9 mg/dL (2.5-4.9)
[2018-11-16] MEDS ORDERED: SYN.05 PO (15:54)
--- NOTE | 2018-11-16 15:56 | NUR ---
PATIENT'S LAB RESULTS CAME BACK. K 3.1, MAG 1.2. PAGED DR. SAUCEDO. PATIENT'S MOTHER ASKED ABOUT PATIENT'S THYROID MEDICATIONS. INFORMED DR. SAUCEDO, PER DR. SAUCEDO, PATIENT NOW BACK ON REGULAR DIET, SO CAN RESUME HOME MEDICATIONS. ORDERS NOTED, AND WILL BE CARRIED OUT. PATIENT'S MOTHER DANG AWARE. WILL CONTINUE TO MONITOR PATIENT.
[2018-11-16 16:00] VITALS: BP 122/60
[2018-11-16] MEDS: KCL 20 MEQ/WATER INJ PREMIX 100 ML IV SCH ×2 (16:17→18:11)
--- NOTE | 2018-11-16 16:17 | NUR ---
FIRST BAG OF K RIDER ADMINISTERED. PATIENT TOLERATING IT. MOTHER AT BEDSIDE. WILL CONTINUE TO MONITOR PATIENT.
--- NOTE | 2018-11-16 17:08 | NUR ---
ORDERED MEDICATION GIVEN. PATIENT TOLERATED IT WELL. NO COMPLAINTS AT THIS TIME. MOTHER AT BEDSIDE. WILL CONTINUE TO MONITOR PATIENT.
--- NOTE | 2018-11-16 18:11 | NUR ---
SECOND BAG OF K RIDER ADMINISTERED. PATIENT TOLERATING IT. PATIENT VOIDED AND HAD DIARRHEA. PATIENT CLEANED UP AND CHANGED. PATIENT NOW RESTING IN BED WATCHING TV. NO S/S OF SOB OR DISTRESS NOTED. PATIENT DENIES PAIN. SAFETY PRECAUTIONS IN PLACE, CALL LIGHT WITHIN REACH. WILL CONTINUE TO MONITOR PATIENT.
--- NOTE | 2018-11-16 19:08 | NUR ---
REPORT GIVEN TO BOILER/CHILLER TECHNICIAN NURSE AT BEDSIDE FOR CONTINUITY OF CARE. PATIENT IN STABLE CONDITION.
--- NOTE | 2018-11-16 19:09 | NUR ---
RECEIVED BEDSIDE REPORT FROM DAY SHIFT NURSESUSANNE FOR CONTINUOUS CARE. PATIENT IS AWAKE AND COOPERATIVE. RESPIRATION EVEN UNLABORED ON ROOM AIR. NO DISTRESS NOTED. SKIN IS WARM AND DRY. IV SITE ON LFA 20G, PATENT AND INTACT. ALL SAFETY MEASURES IN PLACE. PLAN OF CARE WAS DISCUSSED. BED IS AT LOW POSITION. CALL LIGHT WITHIN REACH. WILL CONTINUE TO MONITOR.
[2018-11-16] MEDS ORDERED: MAG SULF 2000 MG/WATER PREMIX 50 ML IV SCH (20:00)
--- NOTE | 2018-11-16 20:56 | NUR ---
GIVEN MAG REBOLLEDO ORDERED. HELD SENNA D/T DIARRHEA. PT TOLERATED WELL.
[2018-11-17] VITALS: BP 127/100
[2018-11-17] MEDS: METOCLOPRAMIDE 10 MG/2 ML INJ VIAL IVP SCH ×2 (00:19→05:40)
--- NOTE | 2018-11-17 00:19 | NUR ---
GIVEN REGLAN MD ORDERED. PT TOLERATED WELL. VS CHECKED, WITHIN PT'S BASELINE.
--- NOTE | 2018-11-17 02:45 | NUR ---
PT SLEEPING IN BED COMFORTABLY. NO ACUTE DISTRESS NOTED. WILL CONTINUE TO MONITOR.
--- NOTE | 2018-11-17 05:40 | NUR ---
GIVEN RAGLAN AND SYNTHROID MD ORDERED. PT TOLERATED WELL. WILL CONTINUE TO MONITOR.
--- NOTE | 2018-11-17 06:29 | NUR ---
PT SLEEPING IN BED. PT IN STABLE CONDITION.
[2018-11-17] MEDS ORDERED: LEVOTHYROXINE 0.025 MG TAB PO SCH (06:30)
--- NOTE | 2018-11-17 07:10 | NUR ---
RECEIVED BEDSIDE REPORT FROM PRESSURE TESTER OPERATOR NURSE. PATIENT IS AWAKE, ALERT AND ORIENTEDX2. NO SIGNS OF DISTRESS ON RA. SKIN IS INTACT. FALL RISK PROTOCOL IN PLACE. PATIENT IS WHEELCHAIR BOUND. PATIENT IS INCONTINENT. IV ON L FA 20G. CLEAN, DRY AND INTACT. BED IN LOW POSITION. CALL LIGHT WITHIN REACH.
[2018-11-17 08:00] VITALS: BP 97/39
[2018-11-17 08:29] LABS: HEMATOCRIT 32.7 % (36-48); MEAN CORPUSCULAR HEMOGLOBIN 32 pg (27-31); MEAN CORPUSCULAR HGB CONC 34 g/dL (33-37); PLATELET COUNT (AUTO) 160 K/uL (140-450); RED BLOOD CELL COUNT(AUTO) 3.48 MIL/uL (4.20-5.40); RED CELL DISTRIBUTION WIDTH 12.9 % (11.6-13.7); WHITE BLOOD COUNT (AUTO) 14.2 K/uL (4.8-10.8)
[2018-11-17 08:34] LABS: ANION GAP 13.3 (8-16); CARBON DIOXIDE 25.1 mmol/L (21-32); CREATININE 0.4 mg/dL (0.6-1.3); POTASSIUM 3.4 mmol/L (3.5-5.1)
[2018-11-17 08:47] LABS: MAGNESIUM 1.7 mg/dL (1.8-2.4); PHOSPHORUS 2.8 mg/dL (2.5-4.9)
[2018-11-17] MEDS: SENNA 8.6 MG TAB PO SCH (09:00)
--- NOTE | 2018-11-17 09:00 | NUR ---
PATIENT HAD BIG LOOSE STOOL. HELD SENNA AT THIS TIME. WILL CONTINUE TO MONITOR
[2018-11-17 09:02] LABS: LYMPHOCYTES % (MANUAL) 7 % (20-46); MONOCYTES % (MANUAL) 6 % (5-12)
--- NOTE | 2018-11-17 11:00 | NUR ---
PATIENT IN NO DISTRESS. WILL CONTINUE TO MONITOR
[2018-11-17] MEDS ORDERED: KCL 20 MEQ/WATER INJ PREMIX 100 ML IV SCH (13:00)
[2018-11-17] MEDS ORDERED: MAGNESIUM OXIDE 400 MG TAB PO SCH (13:00)
--- NOTE | 2018-11-17 13:00 | NUR ---
PATIENT SITTING IN BED. MOTHER AT BEDSIDE. WILL CONTINUE TO MONITOR
[2018-11-17] MEDS ORDERED: POTASSIUM CHLORIDE 10 MEQ TABER PO SCH (14:00)
[2018-11-17] MEDS ORDERED: LEVO750T2 PO (14:24)
[2018-11-17] MEDS ORDERED: MIRABULK PO (14:24)
--- NOTE | 2018-11-17 14:45 | NUR ---
EDUCATED PATIENTS MOTHER ON DISEASE PROCESS, ABN S/SX, WHEN TO GO TO THE ER, EDUCATED ON MEDS, GAVE PRESCRIPTIONS. EDUCATED ON FOLLOW UP W PCP IN A WEEK. PATIENTS MOM VERBALIZED UNDERSTANDING AND SIGNED PAPERWORK. IV REMOVED. TIP INTACT. ID BANDS REMOVED. PNA AND FLU VACCINES UP TO DATE. PATIENT LEFT IN STABLE IN WHEELCHAIR CONDITION W MOTHER TO GO HOME
[2018-11-17] MEDS ORDERED: METOCLOPRAMIDE 10 MG TAB PO SCH (16:30)
[2018-11-18] MEDS ORDERED: POTASSIUM CHLORIDE 20% 40 MEQ/15 ML UDC GT SCH (09:00)
== END 2018-11-17 14:45 | disposition home or self-care (01) | DRG 247 ==
LOC: MED 15:44 → MTU 20:49
PROVIDERS: ADMIT Internal Medicine Pulmonary Disease; ATTEND Internal Medicine Pulmonary Disease
PROC: 0D9670Z Drainage of Stomach with Drainage Device, Via Natural or Artificial Opening (ICD-10-PCS; principal; 2018-11-07)
DX: K56.699 Other intestinal obstruction unspecified as to partial versus complete obstruction (principal); D72.829 Elevated white blood cell count, unspecified; E03.9 Hypothyroidism, unspecified; E86.9 Volume depletion, unspecified; G80.9 Cerebral palsy, unspecified; F79 Unspecified intellectual disabilities; K59.00 Constipation, unspecified
CPT/HCPCS: 36415; 71045; 74018; 74270; 80048; 80053; 83690; 83735; 84100; 85025; 85610; 85730; 87081; 96360; 99285; J1650; J2270; J2405; J2765; J3475; J3480; J7042; J7120; Q0092; Q9967